=== PATIENT | male | born 1955 | race African-American/Black ===

== ENCOUNTER → 2017-06-24 | Outpatient (CLI) | payer BC ==
[~2017-06-24] MED LIST: AVALIDE; MEVACOR; MVI; PERCOCET 650 MG1 TAB PO
== END ==
LOC: COL.RAD 10:15
DX: S06.5X0A Traumatic subdural hemorrhage without loss of consciousness, initial encounter (principal); S06.1X0A Traumatic cerebral edema without loss of consciousness, initial encounter

== ENCOUNTER 2017-08-01 20:22 | Inpatient (IN) | payer BC ==
[~2017-08-01] VITALS: Ht 182.9 cm; Wt 119.7 kg
[2017-08-01 21:41] VITALS: BP 152/80; PULSE 75; TEMP 98.3
[2017-08-01] MEDS ORDERED: MEVACOR10 MG PO (22:34)
[2017-08-01] MEDS ORDERED: EPA FISH OIL1 SGL PO (22:35)
[2017-08-01] MEDS ORDERED: DIABETA 5MG5 MG/TAB PO (22:37)
[2017-08-01] MEDS ORDERED: GLUCOSAMINE & C1 CA2 PO (22:39)
[2017-08-01] MEDS ORDERED: JANUVIA 100MG100 MG PO (22:41)
[2017-08-01] MEDS ORDERED: GLUCOPHAGE XR500 M1 PO ×2 (22:42→22:43)
[2017-08-01] MEDS ORDERED: MULTI VITAMINS1 TAB PO (22:44)
[2017-08-01] MEDS ORDERED: KEPPRA 500MG500 MG PO (22:47)
[2017-08-01] MEDS ORDERED: COZAAR100 MG PO (22:48)
[2017-08-01] MEDS ORDERED: K-TAB20 PO (22:51)
[2017-08-01] MEDS ORDERED: APRESOLINE50 MG PO (22:52)
[2017-08-01] MEDS ORDERED: TOPROL XL 25MG25 MG PO (22:54)
[2017-08-01] MEDS ORDERED: NORVASC 10MG10 MG PO ×2 (22:54→22:55)
[2017-08-01] MEDS ORDERED: TYLENOL 325MG325 MG PO (23:13)
[2017-08-02 06:34] VITALS: BP 164/54; PULSE 66; TEMP 98.2
[2017-08-02 16:02] VITALS: BP 133/75; PULSE 71; TEMP 97.7
[2017-08-03 06:18] VITALS: BP 139/82; PULSE 85; TEMP 98.2
[2017-08-03 15:39] VITALS: BP 124/77; PULSE 74; TEMP 98
[2017-08-04 05:52] VITALS: BP 135/83; PULSE 87; TEMP 97.7
[2017-08-04 16:03] VITALS: BP 129/68
[2017-08-04 17:46] VITALS: BP 133/71; PULSE 80; TEMP 97.6
[2017-08-05 04:51] VITALS: BP 141/76; PULSE 77; TEMP 98.3
[2017-08-05 18:07] VITALS: BP 129/78; PULSE 79; TEMP 98.6
[2017-08-06 06:11] VITALS: BP 133/73; PULSE 89; TEMP 98.2
[2017-08-06 17:13] VITALS: BP 119/79; PULSE 78; TEMP 98.2
[2017-08-07 05:14] VITALS: BP 133/70; PULSE 80; TEMP 98.2
[2017-08-07 15:37] VITALS: BP 131/69; PULSE 92; TEMP 97.4
[2017-08-08 05:49] VITALS: BP 139/81; PULSE 84; TEMP 98.5
== END 2017-08-08 12:20 | disposition home or self-care (01) | DRG 57 ==
DX: I69.351 Hemiplegia and hemiparesis following cerebral infarction affecting right dominant side (principal); I69.321 Dysphasia following cerebral infarction; I10 Essential (primary) hypertension; E11.9 Type 2 diabetes mellitus without complications; E66.01 Morbid (severe) obesity due to excess calories; Z68.35 Body mass index [BMI] 35.0-35.9, adult
CPT/HCPCS: 99222-AI; 99232-AI; 99239

== ENCOUNTER → 2017-09-23 | Outpatient (CLI) | payer BC ==
[~2017-09-23] MED LIST changes: +APRESOLINE50 MG PO; +COZAAR100 MG PO; +DIABETA 5MG5 MG/TAB PO; +EPA FISH OIL1 SGL PO; +GLUCOPHAGE XR500 M1 PO; +GLUCOSAMINE & C1 CA2 PO; +JANUVIA 100MG100 MG PO; +K-TAB20 PO; +KEPPRA 500MG500 MG PO; +MEVACOR10 MG PO; +MULTI VITAMINS1 TAB PO; +NORVASC 10MG10 MG PO; +TOPROL XL 25MG25 MG PO; +TYLENOL 325MG325 MG PO
== END ==
LOC: COL.RAD 14:14
DX: I62.01 Nontraumatic acute subdural hemorrhage (principal); Z98.890 Other specified postprocedural states

== ENCOUNTER → 2018-02-05 | Outpatient (CLI) | payer BC ==
[2018-02-05 09:00] LABS: CALCIUM 9.5 mg/dL (8.4-10.2); CREATININE, serum 1.09 mg/dL (0.66-1.25); POTASSIUM 4.2 mmol/L (3.4-5.0)
== END ==
LOC: COL.RAD 08:04
PROVIDERS: Internal Medicine Nephrology
DX: E27.9 Disorder of adrenal gland, unspecified (principal)

== ENCOUNTER 2022-12-18 06:46 | Day surgery (SDC) | payer BC ==
[~2022-12-18] VITALS: Ht 185.4 cm; Wt 120.8 kg
[2022-12-18] VITALS (598 sets, daily range): BP systolic 128–194; BP diastolic 79–115; PULSE 54–80; TEMP 97.7–98; O2SAT 81–100
[~2022-12-18 06:46] MED LIST changes: -TOPROL XL 25MG25 MG PO; +TOPROL XL100 MG PO
[2022-12-18] MEDS ORDERED: HYDRODIURIL50 MG PO (14:00)
[2022-12-18] MEDS ORDERED: REVATIO20 MG PO (14:02)
[2022-12-18] MEDS ORDERED: JANUVIA 100MG100 MG PO (14:03)
[2022-12-18 14:36] LABS: BASO % 0.2 % (0.0-2.0); EOS % 0.1 % (0.0-4.0); GRAN # 8.6 K/mm3 (1.4-6.5); GRAN % 81.6 % (42.2-75.2); HEMATOCRIT 38.3 % (42.0-52.0); HEMOGLOBIN 12.4 g/dl (13.5-18.0); LYMPH # 1.2 K/mm3 (1.2-3.4); LYMPH % 11.6 % (20.0-51.0); MEAN CELL VOLUME 80 fl (80.0-100.0); MEAN CORPUSCULAR HEMOGLOBIN 26 pg (27-31); MEAN CORPUSCULAR HGB CONC 32 g/dl (33.0-37.0); MEAN PLATELET VOLUME 9.5 fl (7.4-10.4); MONO # 0.6 K/mm3 (0.1-0.6); PLATELET COUNT 297 K/mm3 (130-400); REDCELL DISTRIBUTION WIDTH-CV 14.8 % (11.5-14.5)
[2022-12-18 14:57] LABS: ALANINE AMINOTRANSFERASE 29 U/L (0-55); ALBUMIN 3.9 gm/dL (3.4-4.8); ALKALINE PHOSPHATASE 56 U/L (40-150); ANION GAP 9 mmol/L (7-16); AST,SGOT 32 U/L (5-34); BILIRUBIN,TOTAL 0.4 mg/dL (0.2-1.2); BLOOD UREA NITROGEN 13 mg/dL (8-26); CALCIUM 9.3 mg/dL (8.4-10.2); CARBON DIOXIDE 25 mmol/L (23-31); CHLORIDE 106 mmol/L (98-107); CREATININE, serum 1.14 mg/dL (0.72-1.25); GLUCOSE 166 mg/dL (70-99); MAGNESIUM 1.7 mg/dL (1.6-2.6); PHOSPHOROUS 2.9 mg/dL (2.3-4.7); POTASSIUM 4.3 mmol/L (3.5-4.5); SODIUM 140 mmol/L (136-145); TOTAL PROTEIN 7.7 gm/dL (6.2-8.1)
[2022-12-18 15:19] LABS: TSH w REFLEX 1.064 uIU/mL (0.350-4.940)
[2022-12-18 15:26] LABS: TROPONIN-I < 0.010 ng/mL (0.00-0.033)
--- NOTE | 2022-12-18 19:06 | NUR ---
PT ARRIVED TO UNIT FROM PACU AT 1330. PT IN STABLE CONDITION UPON TRANSFER, DROWSY BUT ALERT AND ORIENTED AND ABLE TO ANSWER QUESTIONS. DRESSING TO L HIP IS CDI, DISTAL PULSES STRONG AND EQUAL IN BLE. HEART RATE FLUCUATING BETWEEN 50-60. OXYGEN INITIALLY REQUIRED AT 2L PER OXYMASK TO KEEP SATS ABOVE 90%, DISCONTINUED AT 1600. PT STANDS AT BEDSIDE W/ THERAPY, GAIT BELT AND WALKER USED, GAIT STEADY. PT UNABLE TO URINATE, BLADDER SCAN DONE, 900 ML IN BLADDER. BILL INSERTED PER TORB FROM [facility]. SMALL AMOUNT OF BLOOD AND SMALL CLOTS RETURNED INITIALLY FOLLOWED BY CLEAR YELLOW URINE. PT SITTING IN BED AT THIS TIME, EATING, AT BEDSIDE. CALL LIGHT IN REACH.
--- NOTE | 2022-12-18 20:00 | NUR ---
PT IS SITTING UP IN BED CONVERSING WITH . A&O X . MILD PAIN NOTED. ADEQUATE URINE OUTPUT VIA BILL CATHETAR. BED IN LOW POSITION AND CALL LIGHT WITHIN REACH. NO FURTHER QUESTIONS OR CONCERNS AT THIS TIME.
[2022-12-19] VITALS (420 sets, daily range): BP systolic 145–189; BP diastolic 85–101; PULSE 88–112; TEMP 97.9–98.6; O2SAT 73–100
--- NOTE | 2022-12-19 | NUR ---
PT IS COMFORTABLY RESTING AT THIS TIME. CPAP APPLIED. BED IN LOW POSITION AND CALL LIGHT WITHIN REACH.
[2022-12-19 06:43] LABS: HEMATOCRIT 36.1 % (42.0-52.0)
[2022-12-19 07:09] LABS: CALCIUM 8.7 mg/dL (8.4-10.2); CREATININE, serum 0.93 mg/dL (0.72-1.25); POTASSIUM 3.7 mmol/L (3.5-4.5)
--- NOTE | 2022-12-19 11:25 | NUR ---
SPOKE WITH RAPHAEL VELASQUEZ. WILL COME SEE PATIENT IN A LITTLE BUIT, ANSWER ANY QUESTIONS AND READY PT FOR DISCHARGE HOME.
[2022-12-19] MEDS ORDERED: ASPIRIN 81M81 MG/TA2 PO (12:40)
[2022-12-19] MEDS ORDERED: NORCO 325 MG-51 TAB PO (12:40)
[2022-12-19] MEDS ORDERED: CEPHALEXIN500 M1 PO (12:40)
[2022-12-19] MEDS ORDERED: HYGROTON 2525 MG/TAB PO (12:50)
== END 2022-12-19 14:45 | disposition home or self-care (01) ==
LOC: SDCO 06:46 → ICU 13:30 → SDCO 12-19 14:45
PROVIDERS: Nurse Practitioner; Physician Assistant
DX: M16.12 Unilateral primary osteoarthritis, left hip (principal); I44.1 Atrioventricular block, second degree; E11.9 Type 2 diabetes mellitus without complications; I10 Essential (primary) hypertension; E78.5 Hyperlipidemia, unspecified; R33.9 Retention of urine, unspecified; G47.33 Obstructive sleep apnea (adult) (pediatric); Z91.199 Patient's noncompliance with other medical treatment and regimen due to unspecified reason; Z79.84 Long term (current) use of oral hypoglycemic drugs; Z79.85 Long-term (current) use of injectable non-insulin antidiabetic drugs; Z87.891 Personal history of nicotine dependence; Z79.899 Other long term (current) drug therapy
CPT/HCPCS: OP; A4314; A6197; A9284; C1776; J0360; J0690; J1580; J1815; J1885; J2250; J2270; J2405; J2704; J2795; J3010; J3475; J7030; J7120